=== PATIENT | female | born 1935 | race Caucasian/White ===

== ENCOUNTER 2018-11-12 15:43 | Emergency (ER) | payer MEDICARE, OTHER, MEDICAID, SELFPAY ==
[2018-11-12] VITALS (7 sets, daily range): BP systolic 111–133; BP diastolic 56–75; PULSE 68–97; RESP 15–20; TEMP 36.4; O2SAT 92–97
[2018-11-12 16:56] LABS: Add Manual Diff / Slide Review NO; Basophils Percent Auto 0.7 % (0-2); Eosinophils Percent Auto 0.6 % (2-4); Hematocrit 30.1 % (36-46); Lymphocytes Percent Auto 9.7 % (25-40); Mean Corpuscular HGB Conc 33.1 % (30-36); Mean Corpuscular Hemoglobin 30.2 PG (26-34); Mean Corpuscular Volume 91.2 fL (80-100); Monocytes Percent Auto 9.7 % (3-14); Neutrophils Absolute Auto 6000 /uL (1500-7000); Neutrophils Percent Auto 79.3 % (50-75); Platelet Count 387 X10^3/uL (150-400); Red Cell Distribution Width 13.8 % (11.6-14.8); White Blood Cell Count 7.6 X10^3/uL (4.5-11.0)
--- NOTE | 2018-11-12 16:56 | DI.CT.S_ITS ---
PROCEDURE: CT ABDOMEN PELVIS W CON INDICATIONS: Distension and firmness to abdomen TECHNIQUE: After the administration of intravenous contrast, 5 mm thick sections acquired from the diaphragm to the symphysis. 5 mm coronal and sagittal reformats were acquired. For radiation dose reduction, the following was used: automated exposure control, adjustment of mA and/or kV according to patient size. COMPARISON: [facility], CT, CHEST/ABD/PELVIS W/CON (PNL), 05/20/2013, 7:38. FINDINGS: Image quality: Excellent. ABDOMEN: Lung bases: Multiple soft tissue density nodules and masses are seen scattered in posterior and lateral aspect of bilateral lung bases measures up to 1.5 cm in posterior medial aspect of left lower lobe, and up to 1 cm in size adjacent to the posterior pleura of right lung base. No pleural effusion or pneumothorax. Heart size is normal. No pericardial effusion. Solid organs: Liver is normal in size. Ill-defined hypodense lesion involving anterior aspect of right hepatic lobe medial segment is noted, not seen on previous study and measures 1.6 cm in size. Ill-defined hypodense area involving posterior aspect of right hepatic lobe is also seen, new since previous study and measures 1.7 cm in size. A calcified granuloma is again noted in posterior segment of right hepatic lobe. Ill-defined heterogeneously enhancing subtle hypodense mass involving inferior aspect of right hepatic lobe is seen and measures 3.9 x 3.1 cm in size. Gallbladder contains a calcified stone in its dependent portion. No gross gallbladder wall thickening is seen.. Biliary system is non dilated. Pancreas is atrophic in appearance and shows no gross abnormality. Spleen is normal in size and enhancement. No adrenal nodules. Bilateral kidneys are normal in size. No right-sided hydronephrosis. Moderate left hydronephrosis and hydroureter is seen. No obstructing renal stone or ureteral stone is noted. Peritoneum and bowel: Large amount of ascites fluid is noted throughout abdomen and pelvis. No gross peritoneal free air. There is no evidence of bowel obstruction. No gross abnormal bowel wall thickening. Multiple heterogeneously enhancing soft tissue mass with central necrosis are seen scattered throughout the peritoneal space and an abdominal and pelvic mesentery consistent with omental cake and extensive peritoneal metastasis. The largest lesion is seen in left upper quadrant abdomen measures 7.3 x 5.4 x 10.9 cm in size. Moderate to large size hiatal hernia is seen. A necrotic mass is seen adjacent to the GE junction measures 3.4 x 3.3 x 4.7 cm in size, consistent with peritoneal metastatic lesion. Nodes and vessels: There is no abdominal aortic aneurysm or dissection. IVC is normal in size. Prominent retroperitoneal lymph nodes are seen and measures up to 1.4 cm in short axis diameter a left peritoneal space. Miscellaneous: No ventral hernias. PELVIS: Genitourinary: Bladder wall thickness is normal. There is a large lobulated heterogeneously enhancing mass with extensive central area of necrosis seen in mid pelvis measures 10 x 16 x 16 cm in its largest AP, transverse and craniocaudal dimensions. Significant mass effect on adjacent urinary bladder and sigmoid colon is seen. No normal uterus or ovaries are identified on the current study. Miscellaneous: No inguinal hernias or adenopathy. Bones: No suspicious bony lesions. Chronic appearing anterior wedge compression deformity involving T12 vertebral body is seen, progressed since 2013 study. IMPRESSION: 1. 10 x 16 x 16 cm ill-defined and lobulated heterogeneously enhancing soft tissue mass occupying the mid pelvic region with areas of central necrosis and significant mass effect on adjacent urinary bladder, sigmoid colon and left mid to distal ureter. 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 2. Large amount of ascites fluid. No gross peritoneal free air. 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 3. At least 3 subtle hypodense lesions involving right and left hepatic lobes, suspicious for liver metastasis. 4. Moderate left-sided hydronephrosis and proximal hydroureter most likely due to compression of mid to distal left ureter from above mentioned pelvic mass. No right hydronephrosis. 5. Multiple soft tissue density nodules at bilateral lung bases suspicious for pulmonary metastasis. 6. Cholelithiasis. No CT evidence of acute cholecystitis. 7. Moderate hiatal hernia. Significant mass effect from pelvic mass on adjacent sigmoid colon with no definite bowel obstruction. Findings were discussed with referring clinician in the ER at 6:10 PM on 11/12/18. Dictated by: Victor Hugo Martinez M.D. on 11/12/2018 at 17:59 Approved by: Victor Hugo Martinez M.D. on 11/12/2018 at 18:14
[2018-11-12 16:57] LABS: INR 1.2 (0.9-1.3); Prothrombin Time 14.3 SECONDS (10.1-12.7)
--- NOTE | 2018-11-12 16:57 | DI.RAD.S_ITS ---
PROCEDURE: XR CHEST 1V INDICATIONS: edema to lower legs and to her abdomen TECHNIQUE: One view of the chest was acquired. COMPARISON: None. FINDINGS: Surgical changes and devices: None. Lungs and pleura: No pleural effusions or pneumothorax. Mild pulmonary vascular congestion is seen. No focal infiltrate. Mediastinum: Mediastinal contours appear normal. Heart size is no enlarged rmal. Bones and chest wall: No suspicious bony lesions. Overlying soft tissues appear unremarkable. 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 IMPRESSION: Mild congestion. No focal infiltrate or pneumothorax. Dictated by: Victor Hugo Martinez M.D. on 11/12/2018 at 17:17 Approved by: Victor Hugo Martinez M.D. on 11/12/2018 at 17:18
[2018-11-12 17:00] LABS: PTT Partial Thromboplastin Tim 25 SECONDS (26.4-36.2)
[2018-11-12 17:01] LABS: BUN Creatinine Ratio 32.7 (6-22); Blood Urea Nitrogen 49 mg/dL (7-17); Calcium 8.6 mg/dL (8.4-10.2); Carbon Dioxide 27 mmol/L (22-32); Chloride 100 mmol/L (98-107); Estimated Glomerular Filt Rate 33.1 mL/min (>60); Glucose 107 mg/dL (80-110); HEMOLYSIS 25 (0-50); Potassium 3.8 mmol/L (3.4-5.1); Sodium 138 mmol/L (137-145)
[2018-11-12 17:17] LABS: Creatine Kinase 33 U/L (30-135); Lipase 21 U/L (23-300)
[2018-11-12] MEDS: SODIUM CHLORIDE 0.9% 1,000 ML 150 ML IV (17:27)
[2018-11-12 17:34] LABS: Troponin I < 0.012 ng/mL (0.01-0.034)
--- NOTE | 2018-11-12 18:17 | ED_ITS ---
HPI - Extremity Problem <TIANNA Richardson - Last Filed: 11/12/18 22:12> General Chief complaint: Extremity Problem,Nontraumatic Stated complaint: EDEMA TO KNEES Time Seen by Provider: 11/12/18 16:47 Source: patient and family Mode of arrival: ambulatory Limitations: no limitations History of Present Illness HPI Narrative: 83-year-old female with history of hypertension here with daughter due to swelling to her bilateral over extremities into her abdomen over the past several weeks. She has been seen for this by her primary care provider office and was placed on Lasix. Daughter states the Lasix is not helping with swelling to her lower abdomen and to her abdomen. Daughter states that the abdomen swelling has worsened over the past couple of weeks. patient states that she is eating well no nausea vomiting she denies any urinary symptoms. She denies any discomfort to the abdomen or to the lower extremities. No shortness of breath pain. No fevers no chills. Related Data Home Medications Medication Instructions Recorded Confirmed Vitamin D3 6,000 unit PO DAILY 11/12/18 11/12/18 acetaminophen [Tylenol] 650 mg PO DAILY 11/12/18 11/12/18 acetaminophen [Tylenol] 650 mg PO Q6H PRN 11/12/18 11/12/18 alprazolam 1 mg PO .ONCE PRN 11/12/18 11/12/18 alprazolam 1 mg PO TID PRN 11/12/18 11/12/18 bismuth subsalicylate 2 tab PO Q2H PRN MDD 8 11/12/18 11/12/18 [Pepto-Bismol] cyanocobalamin (vitamin B-12) 1,000 mcg PO DAILY 11/12/18 11/12/18 esomeprazole magnesium 20 mg PO DAILY 11/12/18 11/12/18 ferrous sulfate 325 mg PO DAILY 11/12/18 11/12/18 furosemide 20 mg PO DAILY 11/12/18 11/12/18 hydrochlorothiazide 25 mg PO DAILY 11/12/18 11/12/18 liothyronine 25 mcg PO DAILY 11/12/18 11/12/18 quetiapine 25 mg PO BEDTIME 11/12/18 11/12/18 tramadol 50 mg PO Q8H PRN 11/12/18 11/12/18 vortioxetine [Trintellix] 20 mg PO DAILY 11/12/18 11/12/18 Allergies Allergy/AdvReac Type Severity Reaction Status Date / Time oxycodone Allergy Severe Hallucinati Verified 11/12/18 17:27 ng Penicillins Allergy Unknown Verified 11/12/18 17:26 Review of Systems <TIANNA Richardson - Last Filed: 11/12/18 22:12> Eyes Denies change in vision, Denies eye discharge, Denies irritation and Denies loss of vision ENT Ears, Nose, Mouth, and Throat: Denies change in voice, Denies neck pain and Denies sore throat Cardiovascular Denies chest pain, Denies irregular heart rhythm, Denies lightheadedness, Denies palpitations, Denies dyspnea, Denies dyspnea on exertion and Denies orthopnea Respiratory Denies cough, Denies dyspnea, Denies dyspnea on exertion and Denies wheezing Gastrointestinal Gastrointestinal: Denies abdominal pain, Denies change in bowel habits, Denies diarrhea, Denies nausea and Denies vomiting Comments: abdominal distention Genitourinary Denies hematuria, Denies flank pain, Denies urinary incontinence and Denies urinary urgency Comments: Musculoskeletal Denies neck pain Integumentary/Breasts Denies pruritus, Denies erythema, Denies rash and Denies wounds Neurologic Denies confusion and Denies loss of vision Psychiatric Denies anxiety, Denies confusion, Denies depression, Denies homicidal ideation and Denies suicidal ideation Endocrine Denies palpitations Hematologic/Lymphatic Denies easy bruising Allergic/Immunologic Denies wheezing Exam <TIANNA Richardson - Last Filed: 11/12/18 22:12> Initial Vital Signs Initial Vital Signs: Vital Signs Temperature 97.6 F 11/12/18 15:55 Pulse Rate 92 H 11/12/18 15:55 Respiratory Rate 16 11/12/18 15:55 Blood Pressure 133/61 11/12/18 15:55 Pulse Oximetry 95 11/12/18 15:55 Const General: cooperative and well developed Nutritional Appearance: well nourished Orientation: alert, awake, oriented x3 and not confused HENNM Mouth: oral mucosae normal and moist mucous membranes Eyes Conjunctivae: conjunctivae normal Sclera: sclerae normal Pupils: PERRL EOM: EOM intact bilaterally Resp Effort & Inspection: normal respiratory effort, able to speak in complete sentences, no respiratory distress and no use of accessory muscles Auscultation: clear to auscultation bilaterally, no rales, no rhonchi and no wheezes Cardio Rate: regular rate Rhythm: regular rhythm Heart Sounds: no click, no gallops, no murmurs and no rubs Pulses: normal peripheral pulses GI Inspection: distended Palpation: no hepatosplenomegaly, firm, No guarding, No pulsatile mass and No tender Auscultation: normal bowel sounds General: No CVA tenderness Skin General: no rashes or lesions noted, No jaundice and No petechiae Neuro General: alert, oriented x3, gait normal and no focal motor deficits Speech: speech normal <Zay Turner DO - Last Filed: 11/13/18 09:43> Initial Vital Signs Initial Vital Signs: Vital Signs Temperature 97.6 F 11/12/18 15:55 Pulse Rate 92 H 11/12/18 15:55 Respiratory Rate 16 11/12/18 15:55 Blood Pressure 133/61 11/12/18 15:55 Pulse Oximetry 95 11/12/18 15:55 Course <TIANNA Richardson - Last Filed: 11/12/18 22:12> Orders Ordered: Discontinued Medications Furosemide (Lasix) 40 mg IV NOW ONE Stop: 11/12/18 17:43 Last Admin: 11/12/18 18:35 Dose: 40 mg Sodium Chloride (Normal Saline 0.9%) 1,000 mls @ 150 mls/hr IV CONT BERTHA Last Infusion: 11/12/18 21:05 Dose: 0 mls/hr Infusion: 11/12/18 18:35 Dose: 500 mls/hr Admin: 11/12/18 17:27 Dose: 150 mls/hr Sodium Chloride (Normal Saline 0.9%) 500 mls @ 1,000 mls/hr IV BOLUS ONE Stop: 11/12/18 18:11 Last Admin: 11/12/18 18:36 Dose: Vital Signs - 8 hr 11/12/18 15:55 11/12/18 16:00 11/12/18 16:30 Temperature 97.6 F Pulse Rate 92 H 96 H 90 Respiratory Rate 16 16 16 Blood Pressure 133/61 Blood Pressure [Left Arm] 125/68 111/56 L Pulse Oximetry 95 94 92 11/12/18 17:00 11/12/18 17:30 11/12/18 18:00 Temperature Pulse Rate 97 H 87 87 Respiratory Rate 15 17 17 Blood Pressure Blood Pressure [Left Arm] 128/75 128/65 128/65 Pulse Oximetry 95 95 95 11/12/18 21:11 Temperature Pulse Rate 68 Respiratory Rate 20 Blood Pressure 117/63 Blood Pressure [Left Arm] Pulse Oximetry 97 <Zay Turner DO - Last Filed: 11/13/18 09:43> Orders Ordered: Discontinued Medications Furosemide (Lasix) 40 mg IV NOW ONE Stop: 11/12/18 17:43 Last Admin: 11/12/18 18:35 Dose: 40 mg Sodium Chloride (Normal Saline 0.9%) 1,000 mls @ 150 mls/hr IV CONT BRETHA Last Infusion: 11/12/18 21:05 Dose: 0 mls/hr Infusion: 11/12/18 18:35 Dose: 500 mls/hr Admin: 11/12/18 17:27 Dose: 150 mls/hr Sodium Chloride (Normal Saline 0.9%) 500 mls @ 1,000 mls/hr IV BOLUS ONE Stop: 11/12/18 18:11 Last Admin: 11/12/18 18:36 Dose: Vital Signs - 8 hr 11/12/18 15:55 11/12/18 16:00 11/12/18 16:30 Temperature 97.6 F Pulse Rate 92 H 96 H 90 Respiratory Rate 16 16 16 Blood Pressure 133/61 Blood Pressure [Left Arm] 125/68 111/56 L Pulse Oximetry 95 94 92 11/12/18 17:00 11/12/18 17:30 11/12/18 18:00 Temperature Pulse Rate 97 H 87 87 Respiratory Rate 15 17 17 Blood Pressure Blood Pressure [Left Arm] 128/75 128/65 128/65 Pulse Oximetry 95 95 95 11/12/18 21:11 Temperature Pulse Rate 68 Respiratory Rate 20 Blood Pressure 117/63 Blood Pressure [Left Arm] Pulse Oximetry 97 MDM - Extremity (Nontraumatic) <TIANNA Richardson - Last Filed: 11/12/18 22:12> Lab Data Result diagrams: 11/12/18 16:45 11/12/18 16:45 Lab Results 11/12/18 11/12/18 11/12/18 Range/Units 16:45 16:45 16:45 WBC 7.6 (4.5-11.0) X10^3/uL RBC 3.30 L (4.0-5.2) X10^6/uL Hgb 10.0 L (12.0-16.0) g/dL Hct 30.1 L (36-46) % MCV 91.2 (80-100) fL MCH 30.2 (26-34) PG MCHC 33.1 (30-36) % RDW 13.8 (11.6-14.8) % Plt Count 387 (150-400) X10^3/uL Neut % (Auto) 79.3 H (50-75) % Lymph % (Auto) 9.7 L (25-40) % Sargent % (Auto) 9.7 (3-14) % Eos % (Auto) 0.6 L (2-4) % Baso % (Auto) 0.7 (0-2) % Neut # (Auto) 6000 (5173-8380) /uL PT (10.1-12.7) SECONDS INR (0.9-1.3) APTT (26.4-36.2) SECONDS Sodium 138 (137-145) mmol/L Potassium 3.8 (3.4-5.1) mmol/L Chloride 100 (98-107) mmol/L Carbon Dioxide 27 (22-32) mmol/L BUN 49 H (7-17) mg/dL Creatinine 1.50 H (0.52-1.04) mg/dL Estimated GFR 33.1 L (>60) mL/min BUN/Creatinine Ratio 32.7 H (6-22) Glucose 107 (80-110) mg/dL Calcium 8.6 (8.4-10.2) mg/dL Total Bilirubin (0.2-1.3) mg/dL Conjugated Bilirubin (0.0-0.3) md/dL Unconjugated Bilirubin (0.0-1.1) mg/dL AST (14-36) IU/L ALT (9-52) IU/L Alkaline Phosphatase (38-126) U/L Total Creatine Kinase 33 (30-135) U/L CK-MB (CK-2) TNP CK-MB (CK-2) Rel Index TNP Troponin I < 0.012 (0.01-0.034) ng/mL B-Natriuretic Peptide 114.0 H (<100) Total Protein (6.3-8.2) g/dL Albumin (3.5-5.0) g/dL Globulin (1.7-4.1) g/dL Albumin/Globulin Ratio (1.0-2.8) Lipase 21 L (23-300) U/L 11/12/18 11/12/18 Range/Units 16:45 16:45 WBC (4.5-11.0) X10^3/uL RBC (4.0-5.2) X10^6/uL Hgb (12.0-16.0) g/dL Hct (36-46) % MCV (80-100) fL MCH (26-34) PG MCHC (30-36) % RDW (11.6-14.8) % Plt Count (150-400) X10^3/uL Neut % (Auto) (50-75) % Lymph % (Auto) (25-40) % Sargent % (Auto) (3-14) % Eos % (Auto) (2-4) % Baso % (Auto) (0-2) % Neut # (Auto) (0964-7795) /uL PT 14.3 H (10.1-12.7) SECONDS INR 1.2 (0.9-1.3) APTT 25 L (26.4-36.2) SECONDS Sodium (137-145) mmol/L Potassium (3.4-5.1) mmol/L Chloride (98-107) mmol/L Carbon Dioxide (22-32) mmol/L BUN (7-17) mg/dL Creatinine (0.52-1.04) mg/dL Estimated GFR (>60) mL/min BUN/Creatinine Ratio (6-22) Glucose (80-110) mg/dL Calcium (8.4-10.2) mg/dL Total Bilirubin 0.6 (0.2-1.3) mg/dL Conjugated Bilirubin 0.0 (0.0-0.3) md/dL Unconjugated Bilirubin 0.1 (0.0-1.1) mg/dL AST 71 H (14-36) IU/L ALT 30 (9-52) IU/L Alkaline Phosphatase 221 H (38-126) U/L Total Creatine Kinase (30-135) U/L CK-MB (CK-2) CK-MB (CK-2) Rel Index Troponin I (0.01-0.034) ng/mL B-Natriuretic Peptide (<100) Total Protein 7.8 (6.3-8.2) g/dL Albumin 3.3 L (3.5-5.0) g/dL Globulin 4.5 H (1.7-4.1) g/dL Albumin/Globulin Ratio 0.7 L (1.0-2.8) Lipase (23-300) U/L Urine Dip Bedside Urine Glucose Negative Bedside Urine Bilirubin - Negative Bedside Urine Ketone - Negative Urine Specific Carpio 1.020 Bedside Urine Occult Blood +/- Bedside Urine pH 6.0 Bedside Urine Protein - Negative Bedside Urine Nitrite - Negative Bedside Urine Leukocytes - Negative Esterase Imaging Data CT scan - abdomen: Radiologist's impression: Signed Patient: Wilbert Howard#: [id number] : 4Acct:[id number] Age/Sex: 83 / FDate of Service: 11/12/18 Loc: ED Accession Number: [id number] Procedure: CT abdomen pelvis w con Ordering Provider: Lg Chang PROCEDURE: CT ABDOMEN PELVIS W CON INDICATIONS: Distension and firmness to abdomen TECHNIQUE: After the administration of intravenous contrast, 5 mm thick sections acquired from the diaphragm to the symphysis. 5 mm coronal and sagittal reformats were acquired. For radiation dose reduction, the following was used: automated exposure control, adjustment of mA and/or kV according to patient size. COMPARISON: [facility], CT, CHEST/ABD/PELVIS W/CON (PN), 05/20/2013 , 7:38. FINDINGS: Image quality: Excellent. ABDOMEN: Lung bases: Multiple soft tissue density nodules and masses are seen scattered in posterior and lateral aspect of bilateral lung bases measures up to 1.5 cm in posterior medial aspect of left lower lobe, and up to 1 cm in size adjacent to the posterior pleura of right lung base. No pleural effusion or pneumothorax. Heart size is normal. No pericardial effusion. Solid organs: Liver is normal in size. Ill-defined hypodense lesion involving anterior aspect of right hepatic lobe medial segment is noted, not seen on previous study and measures 1.6 cm in size. Ill-defined hypodense area involving posterior aspect of right hepatic lobe is also seen, new since previous study and measures 1.7 cm in size. A calcified granuloma is again noted in posterior segment of right hepatic lobe. Ill-defined heterogeneously enhancing subtle hypodense mass involving inferior aspect of right hepatic lobe is seen and measures 3.9 x 3.1 cm in size. Gallbladder contains a calcified stone in its dependent portion. No gross gallbladder wall thickening is seen.. Biliary system is non dilated. Pancreas is atrophic in appearance and shows no gross abnormality. Spleen is normal in size and enhancement. No adrenal nodules. Bilateral kidneys are normal in size. No right-sided hydronephrosis. Moderate left hydronephrosis and hydroureter is seen. No obstructing renal stone or ureteral stone is noted. Peritoneum and bowel: Large amount of ascites fluid is noted throughout abdomen and pelvis. No gross peritoneal free air. There is no evidence of bowel obstruction. No gross abnormal bowel wall thickening. Multiple heterogeneously enhancing soft tissue mass with central necrosis are seen scattered throughout the peritoneal space and an abdominal and pelvic mesentery consistent with omental cake and extensive peritoneal metastasis. The largest lesion is seen in left upper quadrant abdomen measures 7.3 x 5.4 x 10.9 cm in size. Moderate to large size hiatal hernia is seen. A necrotic mass is seen adjacent to the GE junction measures 3.4 x 3.3 x 4.7 cm in size, consistent with peritoneal metastatic lesion. Nodes and vessels: There is no abdominal aortic aneurysm or dissection. IVC is normal in size. Prominent retroperitoneal lymph nodes are seen and measures up to 1.4 cm in short axis diameter a left peritoneal space. Miscellaneous: No ventral hernias. PELVIS: Genitourinary: Bladder wall thickness is normal. There is a large lobulated heterogeneously enhancing mass with extensive central area of necrosis seen in mid pelvis measures 10 x 16 x 16 cm in its largest AP, transverse and craniocaudal dimensions. Significant mass effect on adjacent urinary bladder and sigmoid colon is seen. No normal uterus or ovaries are identified on the current study. Miscellaneous: No inguinal hernias or adenopathy. Bones: No suspicious bony lesions. Chronic appearing anterior wedge compression deformity involving T12 vertebral body is seen, progressed since 2013 study. IMPRESSION: 1. 10 x 16 x 16 cm ill-defined and lobulated heterogeneously enhancing soft tissue mass occupying the mid pelvic region with areas of central necrosis and significant mass effect on adjacent urinary bladder, sigmoid colon and left mid to distal ureter. 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 2. Large amount of ascites fluid. No gross peritoneal free air. 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 3. At least 3 subtle hypodense lesions involving right and left hepatic lobes, suspicious for liver metastasis. 4. Moderate left-sided hydronephrosis and proximal hydroureter most likely due to compression of mid to distal left ureter from above mentioned pelvic mass. No right hydronephrosis. 5. Multiple soft tissue density nodules at bilateral lung bases suspicious for pulmonary metastasis. 6. Cholelithiasis. No CT evidence of acute cholecystitis. 7. Moderate hiatal hernia. Significant mass effect from pelvic mass on adjacent sigmoid colon with no definite bowel obstruction. Findings were discussed with referring clinician in the ER at 6:10 PM on . Dictated by: Victor Hugo Martinez M.D. on 11/12/2018 at 17:59 Approved by: Victor Hugo Martinez M.D. on 11/12/2018 at 18:14 Chest x-ray: Radiologist's impression: [place] [address] XRay Report Signed Patient: Wilbert Howard#: [id number] : 1935cct:[id number] Age/Sex: 83 / FDate of Service: 11/12/18 Loc: ED Accession Number: [id number] Procedure: XR chest 1V Ordering Provider: Lg Chang PROCEDURE: XR CHEST 1V INDICATIONS: edema to lower legs and to her abdomen TECHNIQUE: One view of the chest was acquired. COMPARISON: None. FINDINGS: Surgical changes and devices: None. Lungs and pleura: No pleural effusions or pneumothorax. Mild pulmonary vascular congestion is seen. No focal infiltrate. Mediastinum: Mediastinal contours appear normal. Heart size is no enlarged rmal. Bones and chest wall: No suspicious bony lesions. Overlying soft tissues appear unremarkable. 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 IMPRESSION: Mild congestion. No focal infiltrate or pneumothorax. Dictated by: Victor Hugo Martinez M.D. on 11/12/2018 at 17:17 Approved by: Victor Hugo Martinez M.D. on 11/12/2018 at 17:18 ECG Data Interpretation: EKG shows normal sinus rhythm with no ST elevation or depression. Ventricular rate of 91. Pr interval 138. QRS duration of 88. QTC 400 MDM Narrative Medical decision making narrative: chest x-ray was obtained and shows mild congestion otherwise is unremarkable. EKG shows sinus rhythm with no ST elevation or depression. Laboratory results show mild anemia. chemistry panel shows decreased GFR 33 and elevated creatinine of 1.5. Patient states she has a history of renal insufficiency. BNP was mildly elevated at 114. alk phos was 221 AST is 71 and ALT is 30. CT of the abdomen was obtained and shows areas where large tumors largest is in the pelvic region of 16 cm with multiple to the abdomen and some to the liver very suspicious for metastatic disease. believe this is the cause of her ascites and swelling. discussed case with Dr. Valenzuela who was on-call for Dr. Richards patient's primary care provider will follow-up with patient on Thursday for discussion of plan for treatment. patient will call the office Thursday morning to schedule follow-up appointment. For any worsening symptoms return to the emergency room. Continue taking Lasix as prescribed by primary care. <Zay Turner, DO - Last Filed: 11/13/18 09:43> Lab Data Lab Results 11/12/18 11/12/18 11/12/18 Range/Units 16:45 16:45 16:45 WBC 7.6 (4.5-11.0) X10^3/uL RBC 3.30 L (4.0-5.2) X10^6/uL Hgb 10.0 L (12.0-16.0) g/dL Hct 30.1 L (36-46) % MCV 91.2 (80-100) fL MCH 30.2 (26-34) PG MCHC 33.1 (30-36) % RDW 13.8 (11.6-14.8) % Plt Count 387 (150-400) X10^3/uL Neut % (Auto) 79.3 H (50-75) % Lymph % (Auto) 9.7 L (25-40) % Sargent % (Auto) 9.7 (3-14) % Eos % (Auto) 0.6 L (2-4) % Baso % (Auto) 0.7 (0-2) % Neut # (Auto) 6000 (9195-3275) /uL PT (10.1-12.7) SECONDS INR (0.9-1.3) APTT (26.4-36.2) SECONDS Sodium 138 (137-145) mmol/L Potassium 3.8 (3.4-5.1) mmol/L Chloride 100 (98-107) mmol/L Carbon Dioxide 27 (22-32) mmol/L BUN 49 H (7-17) mg/dL Creatinine 1.50 H (0.52-1.04) mg/dL Estimated GFR 33.1 L (>60) mL/min BUN/Creatinine Ratio 32.7 H (6-22) Glucose 107 (80-110) mg/dL Calcium 8.6 (8.4-10.2) mg/dL Total Bilirubin (0.2-1.3) mg/dL Conjugated Bilirubin (0.0-0.3) md/dL Unconjugated Bilirubin (0.0-1.1) mg/dL AST (14-36) IU/L ALT (9-52) IU/L Alkaline Phosphatase (38-126) U/L Total Creatine Kinase 33 (30-135) U/L CK-MB (CK-2) TNP CK-MB (CK-2) Rel Index TNP Troponin I < 0.012 (0.01-0.034) ng/mL B-Natriuretic Peptide 114.0 H (<100) Total Protein (6.3-8.2) g/dL Albumin (3.5-5.0) g/dL Globulin (1.7-4.1) g/dL Albumin/Globulin Ratio (1.0-2.8) Lipase 21 L (23-300) U/L 11/12/18 11/12/18 Range/Units 16:45 16:45 WBC (4.5-11.0) X10^3/uL RBC (4.0-5.2) X10^6/uL Hgb (12.0-16.0) g/dL Hct (36-46) % MCV (80-100) fL MCH (26-34) PG MCHC (30-36) % RDW (11.6-14.8) % Plt Count (150-400) X10^3/uL Neut % (Auto) (50-75) % Lymph % (Auto) (25-40) % Sargent % (Auto) (3-14) % Eos % (Auto) (2-4) % Baso % (Auto) (0-2) % Neut # (Auto) (3851-2330) /uL PT 14.3 H (10.1-12.7) SECONDS INR 1.2 (0.9-1.3) APTT 25 L (26.4-36.2) SECONDS Sodium (137-145) mmol/L Potassium (3.4-5.1) mmol/L Chloride (98-107) mmol/L Carbon Dioxide (22-32) mmol/L BUN (7-17) mg/dL Creatinine (0.52-1.04) mg/dL Estimated GFR (>60) mL/min BUN/Creatinine Ratio (6-22) Glucose (80-110) mg/dL Calcium (8.4-10.2) mg/dL Total Bilirubin 0.6 (0.2-1.3) mg/dL Conjugated Bilirubin 0.0 (0.0-0.3) md/dL Unconjugated Bilirubin 0.1 (0.0-1.1) mg/dL AST 71 H (14-36) IU/L ALT 30 (9-52) IU/L Alkaline Phosphatase 221 H (38-126) U/L Total Creatine Kinase (30-135) U/L CK-MB (CK-2) CK-MB (CK-2) Rel Index Troponin I (0.01-0.034) ng/mL B-Natriuretic Peptide (<100) Total Protein 7.8 (6.3-8.2) g/dL Albumin 3.3 L (3.5-5.0) g/dL Globulin 4.5 H (1.7-4.1) g/dL Albumin/Globulin Ratio 0.7 L (1.0-2.8) Lipase (23-300) U/L Urine Dip Bedside Urine Glucose Negative Bedside Urine Bilirubin - Negative Bedside Urine Ketone - Negative Urine Specific Carpio 1.020 Bedside Urine Occult Blood +/- Bedside Urine pH 6.0 Bedside Urine Protein - Negative Bedside Urine Nitrite - Negative Bedside Urine Leukocytes - Negative Esterase Discharge Plan Departure Patient Disposition: Home Clinical Impression: Lower extremity edema, Ascites Discharge Date/Time: 12/14/18 21:13 Interventions: ED Discharge Assessment Last Done: 11/12/18 21:11 Instructions: DI for Ascites Activity Restrictions/Additional Instructions: laboratory results show mild anemia and renal insufficiency. other laboratory results today present as the cause of the swelling to her lower extremities and also to the abdomen. CT of the abdomen shows areas with large masses to the pelvis and the abdomen along with the liver. These findings are suggestive of cancer with metastatic spread. follow-up with primary care provider beginning of next week for discussion and coming up with a plan for referrals and treatment. use currently prescribed medications as prescribed use Lasix as prescribed. for any worsening symptoms return to the emergency room. Prescriptions: No Action quetiapine 25 mg tablet 25 mg PO BEDTIME RF: 0 alprazolam 1 mg tablet 1 mg PO .ONCE PRN (Reason: anxiety 8:30pm-6am) RF: 0 liothyronine 25 mcg tablet 25 mcg PO DAILY RF: 0 tramadol 50 mg tablet 50 mg PO Q8H PRN (Reason: pain) RF: 0 hydrochlorothiazide 25 mg tablet 25 mg PO DAILY RF: 0 furosemide 20 mg tablet 20 mg PO DAILY RF: 0 esomeprazole magnesium 20 mg capsule,delayed release(DR/EC) 20 mg PO DAILY RF: 0 acetaminophen [Tylenol] 325 mg Tablet 650 mg PO DAILY RF: 0 acetaminophen [Tylenol] 325 mg Tablet 650 mg PO Q6H PRN (Reason: pain) RF: 0 alprazolam 1 mg tablet 1 mg PO TID PRN (Reason: anxiety ) RF: 0 ferrous sulfate 325 mg (65 mg iron) Tablet 325 mg PO DAILY RF: 0 bismuth subsalicylate [Pepto-Bismol] 262 mg Tablet 2 tab PO Q2H MDD 8 PRN (Reason: upset stomach) RF: 0 vortioxetine [Trintellix] 20 mg Tablet 20 mg PO DAILY RF: 0 cyanocobalamin (vitamin B-12) 1,000 mcg Capsule 1,000 mcg PO DAILY RF: 0 Vitamin D3 6,000 units 6,000 unit PO DAILY RF: 0 Referrals: Eddi Richards MD [Physician] - <Zay Turner DO - Last Filed: 11/13/18 09:43> Cosign ED Attending Coletteature Attestation: I was immediately available in the department for consultation. Documentation has been reviewed. I agree with assessment and plan.
[2018-11-12 18:27] LABS: Alanine Aminotransferase 30 IU/L (9-52); Albumin 3.3 g/dL (3.5-5.0); Albumin Globulin Ratio 0.7 (1.0-2.8); Alkaline Phosphatase 221 U/L (38-126); Aspartate Aminotransferase 71 IU/L (14-36); Bilirubin Total 0.6 mg/dL (0.2-1.3); Bilirubin Unconjugated 0.1 mg/dL (0.0-1.1); Globulin 4.5 g/dL (1.7-4.1); HEMOLYSIS 29 (0-50); Total Protein 7.8 g/dL (6.3-8.2)
[2018-11-12] MEDS: FUROSEMIDE 40 MG/4 ML VIAL IV (18:35)
== END 2018-11-12 21:13 | disposition home or self-care (01) ==
PROVIDERS: Emergency Provider Nurse Practitioner Family
DX: R60.0 Localized edema (principal)
CPT/HCPCS: 36591; 71045; 74177; 80048; 80076; 81003; 82550; 83690; 83880; 84484; 85025; 85610; 85730; 93005; 93010; 93041; 96361; 96374; 99285; J1940; Q9967